=== PATIENT | female | born 1995 | race Caucasian/White ===

== ENCOUNTER 2017-06-27 02:33 | Emergency (ER) | payer MEDICAID ==
[~2017-06-27] VITALS: Ht 165.1 cm; Wt 97.0 kg
[2017-06-27] MEDS ORDERED: HALOPERIDOL LACTATE 5MG/ML VIAL IM ONE ×2 (03:15→04:00)
[2017-06-27 03:52] LABS: HEMATOCRIT. 42.3 % (36.0-48.0); MEAN CORPUSCULAR VOLUME 84.9 fL (81.0-99.0); MEAN PLATELET VOLUME 10.4 fl (7.4-10.4); PLATELET 235 x1000/uL (130-400); RED BLOOD CELL COUNT 4.99 mill/uL (4.2-5.4); RED CELL DISTRIBUTION WIDTH 13.9 % (11.6-14.6)
[2017-06-27 03:58] LABS: INR 1.2; PROTHROMBIN TIME 12.7 sec (9.4-11.6)
[2017-06-27] MEDS ORDERED: LIDOCAINE HCL 2% JELLY 5ML ONE (03:59)
[2017-06-27] MEDS ORDERED: LIDOCAINE HCL 2% JELLY 5ML TOP ONE (04:00)
[2017-06-27] MEDS: CAPSAICIN 0.075% CREAM 60GM TOP PRN ×2 (04:06→04:07)
[2017-06-27 04:08] LABS: CHLORIDE 105 mEq/L (98-107)
[2017-06-27 04:22] LABS: PLATELET ESTIMATE NORMAL
[2017-06-27 04:46] VITALS: BP 119/80
[2017-06-27 10:30] LABS: CLARITY URINE CLEAR (CLEAR); COLOR URINE YELLOW (YELLOW); KETONES URINE 4+ (NEGATIVE); LEUKOCYTE ESTERASE URINE NEGATIVE (NEGATIVE); NITRITE URINE NEGATIVE (NEGATIVE); OCCULT BLOOD URINE NEGATIVE (NEGATIVE); PH URINE 8.5 (4.5-8.0); PROTEIN URINE NEGATIVE (NEGATIVE); SPECIFIC GRAVITY URINE 1.021 (1.005-1.030); UROBILINOGEN URINE 0.2 E.U./dL (0.2-1.0)
== END 2017-06-27 05:17 | disposition home or self-care (01) ==
LOC: ER 02:33
DX: T40.7X5A Adverse effect of cannabis (derivatives), initial encounter (principal); F12.10 Cannabis abuse, uncomplicated; F41.9 Anxiety disorder, unspecified; K92.0 Hematemesis; R10.9 Unspecified abdominal pain; Z90.49 Acquired absence of other specified parts of digestive tract
CPT/HCPCS: 36415; 80053; 81003; 81025; 83690; 85025; 85610; 96372; 99284; J1630; Z7610